=== PATIENT | female | born 1965 | race Caucasian/White ===

== ENCOUNTER → 2017-08-27 | Outpatient (CLI) | payer OTHER | LOC: CAT 14:31 | DX: Z13.6 Encounter for screening for cardiovascular disorders (principal) ==

== ENCOUNTER → 2017-08-27 | Outpatient (CLI) | payer OTHER | LOC: RAD 08-26 00:20 | DX: Z12.31 Encounter for screening mammogram for malignant neoplasm of breast (principal) ==

== ENCOUNTER 2020-09-18 11:04 | Emergency (ER) | payer OTHER ==
[~2020-09-18] VITALS: Ht 157.5 cm; Wt 65.8 kg
[2020-09-18 11:08] VITALS: BP 120/89
[2020-09-18] MEDS ORDERED: LIVALO4 MG PO (11:21)
== END 2020-09-18 12:15 | disposition home or self-care (01) ==
LOC: ER 11:04
DX: R05 Cough (principal); Z79.899 Other long term (current) drug therapy; Z20.828 Contact with and (suspected) exposure to other viral communicable diseases

== ENCOUNTER → 2020-12-13 | Outpatient (CLI) | payer OTHER ==
[~2020-12-13] MED LIST: LIVALO4 MG PO
== END ==
LOC: BC 08:23
PROVIDERS: ATTEND Family Medicine
DX: Z12.31 Encounter for screening mammogram for malignant neoplasm of breast (principal)

== ENCOUNTER → 2021-01-27 | Outpatient (CLI) | payer OTHER ==
[2021-01-27 23:06] LABS: LUTEINIZING HORMONE (LH) 34.5 mIU/mL (()); TESTOSTERONE* 35 ng/dL (3-41)
== END ==
LOC: LAB 14:52
PROVIDERS: ATTEND Family Medicine
DX: N91.2 Amenorrhea, unspecified (principal)